=== PATIENT | male | born 1955 | race Caucasian/White ===

== ENCOUNTER → 2016-10-18 | Outpatient (CLI) | payer OTHER ==
[2016-10-18 09:17] LABS: Non-African American GFR(MDRD) >60 (>60 ml/min/1.73 sqM)
--- NOTE | 2016-10-18 12:46 | MR ---
MR brain and internal auditory canals with and without contrast HISTORY: Tinnitus and hearing loss, vertigo Multiplanar multisequence and postcontrast images through the brain following 20 cc MultiHance IV, sm all [id number] high-resolution images also performed through the internal auditory canals No comparisons There is no restricted diffusion to suggest subacute ischemia. The corpus callosum, pituitary, cervic al medullary junction, cerebellopontine angles are unremarkable. No abnormal enhancement within the i nternal auditory canals. There are normal vascular flow voids. Extensive inflammatory change present within the bilateral maxillary sinus, there are air-fluid levels present. No findings to suggest mast oiditis. Brain signal is normal for age, there is mild cortical atrophy. The semicircular canals and cochlea show a symmetric appearance. IMPRESSION: Maxillary sinus disease bilaterally. Internal auditory canals show an unremarkable appear ance.
== END | disposition home or self-care (01) ==
LOC: RADMRIMAIN 08:35
PROVIDERS: ATTEND Otolaryngology
DX: R42 Dizziness and giddiness (principal); H93.19 Tinnitus, unspecified ear; H91.90 Unspecified hearing loss, unspecified ear
CPT/HCPCS: 82565; 70553; 36415; A9577

== ENCOUNTER → 2022-02-20 | Outpatient (CLI) | payer MEDICARE, BC | END | disposition home or self-care (01) | LOC: LABWHC1 10:06 | PROVIDERS: ATTEND Internal Medicine | DX: R97.20 Elevated prostate specific antigen [PSA] (principal) | CPT/HCPCS: 36415; 84153 ==

== ENCOUNTER → 2024-05-26 | Outpatient (CLI) | payer MEDICARE, BC | END | disposition home or self-care (01) | LOC: LABWHC1 13:51 | PROVIDERS: ATTEND Internal Medicine | DX: R97.20 Elevated prostate specific antigen [PSA] (principal) | CPT/HCPCS: 36415; 84153 ==